=== PATIENT | male | born 1980 | race Caucasian/White ===

== ENCOUNTER → 2018-02-11 11:24 | Outpatient (CLI) | payer BC ==
[2018-02-11 13:49] LABS: HELICOBACTER PYLORI IGG POSITIVE (NEGATIVE)
== END | disposition home or self-care (01) ==
LOC: D.LABREF 11:24
PROVIDERS: Internal Medicine Interventional Cardiology
DX: R10.9 Unspecified abdominal pain (principal)

== ENCOUNTER 2018-11-11 15:40 | Emergency (ER) | payer BC ==
[~2018-11-11] VITALS: Ht 157.5 cm; Wt 48.2 kg
[2018-11-11 15:55] VITALS: Ht 157.5 cm; Wt 48.2 kg
[2018-11-11] MEDS ORDERED: XANAX1 MG PO (15:56)
[2018-11-11 18:59] LABS: BASOPHILS 0.3 % (0-2); EOSINOPHILS 1.5 % (0-7); HEMATOCRIT 44.4 % (36.0-48.0); HEMOGLOBIN 14.9 g/dL (12-16); IMMATURE GRANULOCYTES 0.2 % (0-5); MCH 32.7 pg (26.0-34.0); MCHC 33.6 g/dL (31.0-37.0); MCV 97.6 fL (80.0-100.0); MEAN PLATELET VOLUME 10.3 fL (7.4-10.4); MONOCYTES 8.6 % (2-11); NEUTROPHILS 49.4 % (40-80); PLATELET COUNT 172 10x3/uL (130-400); RBC 4.55 10x6/uL (4.00-5.40); RDW 12.3 % (11.5-14.5); WBC 6.1 10x3/uL (4.8-10.8)
[2018-11-11 19:14] LABS: ALBUMIN 3.3 g/dL (3.4-5.0); ALKALINE PHOSPHATASE 51 U/L (46-116); ALT (SGPT) 35 U/L (10-68); CALC OSMOLALITY 289 mosm/kg (275-300); CALCIUM 7.9 mg/dL (8.5-10.1); CARBON DIOXIDE 24.6 mmol/L (21.0-32.0); CHLORIDE - SERUM 109 mmol/L (98-107); CREATININE - SERUM 0.8 mg/dL (0.6-1.3); GLUCOSE 84 mg/dL (74-106); POTASSIUM - SERUM 3.8 mmol/L (3.5-5.1); PROTEIN - SERUM 6.4 g/dL (6.4-8.2); SODIUM 146 mmol/L (136-145); UREA NITROGEN 12 mg/dL (7-18); eGFR NON AFRICAN AMERICAN 85 mL/min (90-120)
[2018-11-11 19:51] LABS: APPEARANCE CLEAR (CLEAR); COLOR YELLOW (YELLOW)
[2018-11-11 19:52] LABS: BILIRUBIN NEGATIVE (NEGATIVE); GLUCOSE NEGATIVE (NEGATIVE); KETONE NEGATIVE (NEGATIVE); NITRITE POSITIVE (NEGATIVE); PROTEIN NEGATIVE (NEGATIVE); SPECIFIC GRAVITY 1.015 (1.005-1.020); UROBILINOGEN NORMAL (NORMAL); WHITE CELLS - URINE 0-5 /hpf (0-5)
[2018-11-11 19:53] LABS: BACTERIA MANY /hpf (NONE SEEN); RED CELLS - URINE OCC /hpf (0-5)
[2018-11-11] MEDS ORDERED: ZOFRAN4 MG PO (21:16)
[2018-11-11] MEDS ORDERED: MACROBID100 MG PO (21:16)
[2018-11-11 22:12] VITALS: BP 118/79
== END 2018-11-11 22:10 | disposition home or self-care (01) ==
LOC: D.ER 15:40 → EDSEX 15:40 → D.ER 22:10
PROVIDERS: Emergency Medicine
DX: N39.0 Urinary tract infection, site not specified (principal); E83.51 Hypocalcemia; E86.0 Dehydration; F17.200 Nicotine dependence, unspecified, uncomplicated

== ENCOUNTER → 2019-04-06 09:43 | Outpatient (CLI) | payer BC ==
[2018-11-11 15:55] VITALS: BMI 19.4
[~2019-04-06 09:43] MED LIST: MACROBID100 MG PO; XANAX1 MG PO; ZOFRAN4 MG PO
== END | disposition home or self-care (01) ==
LOC: D.US 09:43
PROVIDERS: ATTEND Internal Medicine Interventional Cardiology
DX: R10.9 Unspecified abdominal pain (principal); R50.9 Fever, unspecified

== ENCOUNTER → 2019-04-07 16:38 | Outpatient (CLI) | payer BC ==
[2018-11-11 15:55] VITALS: BMI 19.4
== END | disposition home or self-care (01) ==
LOC: D.RAD 16:38
PROVIDERS: ATTEND Nurse Practitioner Family
DX: R10.9 Unspecified abdominal pain (principal)

== ENCOUNTER 2019-04-20 19:51 | Emergency (ER) | payer BC ==
[~2019-04-20] VITALS: Ht 157.5 cm; Wt 49.1 kg
[2019-04-20 19:52] VITALS: Ht 157.5 cm; Wt 49.1 kg
[2019-04-20 20:18] LABS: BASOPHILS 0.5 % (0-2); EOSINOPHILS 0.5 % (0-7); HEMOGLOBIN 14.5 g/dL (12-16); IMMATURE GRANULOCYTES 0.3 % (0-5); LYMPHOCYTES 43.2 % (15-50); MCH 32.2 pg (26.0-34.0); MCHC 33.7 g/dL (31.0-37.0); MCV 95.3 fL (80.0-100.0); MEAN PLATELET VOLUME 9.5 fL (7.4-10.4); MONOCYTES 19.2 % (2-11); NEUTROPHILS 36.3 % (40-80); PLATELET COUNT 168 10x3/uL (130-400); RBC 4.51 10x6/uL (4.00-5.40); RDW 13.3 % (11.5-14.5); WBC 3.9 10x3/uL (4.8-10.8)
[2019-04-20 20:28] LABS: APPEARANCE CLEAR (CLEAR); BILIRUBIN NEGATIVE (NEGATIVE); COLOR YELLOW (YELLOW); GLUCOSE NEGATIVE (NEGATIVE); HCG URINE NEGATIVE (NEGATIVE); KETONE NEGATIVE (NEGATIVE); NITRITE NEGATIVE (NEGATIVE); PROTEIN NEGATIVE (NEGATIVE); UROBILINOGEN NORMAL (NORMAL)
--- NOTE | 2019-04-20 20:29 | NUR ---
NURSE PRESENT UPON ARRIVAL FOR SUICIDE ASSESSMENT. DR. HO NOTIFIED AND REVIEWED PT'S BEHAVIOR AND ASSESSMENT RESULTS. PT IS A LOW RISK PER DR. HO. DR. HO STATED TO GIVE RESOURCES TO PT AT TIME OF DISCHARGE. NO FURTHER ORDERS AT THIS TIME. RESOURCES REVIEWED WITH PT AND SHE VERBALIZED UNDERSTANDING.
[2019-04-20 20:45] LABS: UDS - AMPHET NEGATIVE QUAL (NEGATIVE); UDS - BARB NEGATIVE QUAL (NEGATIVE); UDS - BENZO POSITIVE QUAL (NEGATIVE); UDS - COCAINE NEGATIVE QUAL (NEGATIVE); UDS - OPIATE NEGATIVE QUAL (NEGATIVE); UDS - PCP NEGATIVE QUAL (NEGATIVE); UDS - THC NEGATIVE QUAL (NEGATIVE)
[2019-04-20 20:52] LABS: ALBUMIN 3.9 g/dL (3.4-5.0); ALKALINE PHOSPHATASE 70 U/L (46-116); ALT (SGPT) 66 U/L (10-68); AMYLASE - SERUM 48 U/L (25-115); BILIRUBIN - TOTAL 0.25 mg/dL (0.2-1.3); CALC OSMOLALITY 277 mosm/kg (275-300); CARBON DIOXIDE 31.1 mmol/L (21.0-32.0); CHLORIDE - SERUM 102 mmol/L (98-107); CREATININE - SERUM 0.7 mg/dL (0.6-1.3); GLUCOSE 104 mg/dL (74-106); LIPASE 193 U/L (73-393); MAGNESIUM - SERUM 1.7 mg/dL (1.8-2.4); POTASSIUM - SERUM 3.7 mmol/L (3.5-5.1); PROTEIN - SERUM 7.2 g/dL (6.4-8.2); SODIUM 141 mmol/L (136-145); UREA NITROGEN 4 mg/dL (7-18); eGFR NON AFRICAN AMERICAN > 90 mL/min (90-120)
[2019-04-20 22:40] VITALS: BP 128/72
== END 2019-04-20 22:40 | disposition home or self-care (01) ==
LOC: D.ER 19:51
PROVIDERS: Family Medicine
DX: F10.129 Alcohol abuse with intoxication, unspecified (principal); Y90.7 Blood alcohol level of 200-239 mg/100 ml; F17.210 Nicotine dependence, cigarettes, uncomplicated

== ENCOUNTER → 2019-04-30 07:36 | Outpatient (CLI) | payer BC ==
[2019-04-20 19:52] VITALS: BMI 19.8
== END | disposition home or self-care (01) ==
LOC: D.NM 04-13 07:00
PROVIDERS: ATTEND Nurse Practitioner Family
DX: R10.13 Epigastric pain (principal)

== ENCOUNTER 2019-09-01 14:54 | Emergency (ER) | payer MEDICAID ==
[~2019-09-01] VITALS: Ht 157.5 cm; Wt 49.5 kg
[2019-09-01 15:07] VITALS: Ht 157.5 cm; Wt 49.5 kg
[2019-09-01 17:10] LABS: UDS - AMPHET NEGATIVE QUAL (NEGATIVE); UDS - BARB NEGATIVE QUAL (NEGATIVE); UDS - BENZO NEGATIVE QUAL (NEGATIVE); UDS - COCAINE NEGATIVE QUAL (NEGATIVE); UDS - OPIATE NEGATIVE QUAL (NEGATIVE); UDS - PCP NEGATIVE QUAL (NEGATIVE); UDS - THC NEGATIVE QUAL (NEGATIVE)
[2019-09-01 17:22] LABS: ALBUMIN 3.7 g/dL (3.4-5.0); ALKALINE PHOSPHATASE 145 U/L (46-116); ALT (SGPT) 182 U/L (10-68); BILIRUBIN - TOTAL 1.48 mg/dL (0.2-1.3); CALC OSMOLALITY 274 mosm/kg (275-300); CALCIUM 8.5 mg/dL (8.5-10.1); CARBON DIOXIDE 27.1 mmol/L (21.0-32.0); CHLORIDE - SERUM 100 mmol/L (98-107); CREATININE - SERUM 0.7 mg/dL (0.6-1.3); GLUCOSE 86 mg/dL (74-106); PROTEIN - SERUM 6.8 g/dL (6.4-8.2); SODIUM 139 mmol/L (136-145); UREA NITROGEN 6 mg/dL (7-18); eGFR NON AFRICAN AMERICAN > 90 mL/min (90-120)
[2019-09-01 17:25] LABS: POTASSIUM - SERUM 2.9 mmol/L (3.5-5.1)
[2019-09-01 17:53] LABS: BASOPHILS 0.2 % (0-2); EOSINOPHILS 0.2 % (0-7); HEMATOCRIT 37.3 % (36.0-48.0); HEMOGLOBIN 12.3 g/dL (12-16); IMMATURE GRANULOCYTES 0.2 % (0-5); LYMPHOCYTES 11.7 % (15-50); MEAN PLATELET VOLUME 12.2 fL (7.4-10.4); MONOCYTES 7.2 % (2-11); NEUTROPHILS 80.5 % (40-80); PLATELET COUNT 80 10x3/uL (130-400); RBC 3.73 10x6/uL (4.00-5.40); RDW 18.3 % (11.5-14.5); WBC 4.5 10x3/uL (4.8-10.8)
[2019-09-01 17:56] LABS: APPEARANCE CLEAR (CLEAR); BILIRUBIN NEGATIVE (NEGATIVE); COLOR STRAW (YELLOW); GLUCOSE NEGATIVE (NEGATIVE); KETONE NEGATIVE (NEGATIVE); NITRITE NEGATIVE (NEGATIVE); PROTEIN NEGATIVE (NEGATIVE); UROBILINOGEN NORMAL (NORMAL)
[2019-09-01 17:59] LABS: PLATELET ESTIMATE DECREASED
[2019-09-01 19:30] VITALS: BP 149/83
[2019-09-03 08:11] LABS: HEPATITIS C ANTIBODY <0.1 S/CO RAT (0.0-0.9)
== END 2019-09-01 19:30 | disposition home or self-care (01) ==
LOC: D.ER 14:54
PROVIDERS: Emergency Medicine
DX: R56.9 Unspecified convulsions (principal); R79.89 Other specified abnormal findings of blood chemistry